=== PATIENT | male | born 1955 | race Caucasian/White ===

== ENCOUNTER 2020-04-04 07:39 | Day surgery (SDC) | payer BC ==
[~2020-04-04] VITALS: Ht 185.4 cm; Wt 89.1 kg
[~2020-04-04 07:39] MED LIST: LOTREL 5-20 MG1 CAP PO
[2020-04-04 08:18] LABS: HEMATOCRIT 43.1 % (42.0-54.0); HEMOGLOBIN 14.7 g/dL (13.5-17.5); MCH 29.1 pg (26.0-34.0); MCHC 34.1 g/dL (31.0-37.0); MCV 85.2 fL (80.0-100.0); MEAN PLATELET VOLUME 9.8 fL (7.4-10.4); RBC 5.06 10x6/uL (4.20-6.10); RDW 14.6 % (11.5-14.5); WBC 8.4 10x3/uL (4.8-10.8)
[2020-04-04 09:14] VITALS: BP 128/86; Ht 185.4 cm; Wt 89.1 kg
--- NOTE | 2020-04-04 18:14 | NUR ---
1810 DR. BONNIE AYON ON PT.
--- NOTE | 2020-05-23 16:10 | OP ---
PATIENT NAME: JUAN PRIETO MEDICAL RECORD: [id number] :55 LOCATION:D.OPS ADMISSION DATE: SURGEON: YARY NICOLE MD DATE OF OPERATION: 04/04/2020 PREOPERATIVE DIAGNOSES: 1. HPV with anal papilloma. 2. Bleeding internal hemorrhoids. POSTOPERATIVE DIAGNOSES: 1. HPV with anal papilloma. 2. Bleeding internal hemorrhoids. PROCEDURES: 1. Anal evaluation under anesthesia with argon plasma coagulation ablation of small verrucous lesions within the anus. 2. Excisional biopsies of some of the verrucous lesions. 3. Ligation of internal hemorrhoids times 3 for purposes of controlling bleeding. DESCRIPTION OF PROCEDURE: The patient was conveyed to the operating room electively on 04/04/2020. General anesthesia was induced by the anesthesia staff. The patient was placed in the lithotomy position with the buttocks taped laterally. The anus and perineum were sterilely prepped and draped. U-shaped anal retractors were placed. I examined the anus. I noted no evidence of an anal fistula. No evidence of an anal fissure. No evidence of perirectal abscess. There were some verrucous lesions that I wanted to excise. I grasped them and excised them with electrocautery. The biopsy sites were made hemostatic with the electrocautery. There were small verrucous lesions that I felt may benefit from argon plasma coagulation ablation. Utilizing the colon setting in the forced mode, I ablated these under HEPA filter vacuum. There were 3 enlarged hemorrhoids, which appeared to be inflamed. These underwent suture ligation with 3-0 Vicryl [id number] sutures. Gelfoam was applied within the anus and lower rectum. A combination of sterile preparation and Marcaine were used to infiltrate the perianal tissues. A topical anesthetic was applied to the external hemorrhoids. The patient was then extubated and conveyed to post-anesthesia care unit where he was in stable condition. I will see him in office in 2-3 weeks. We will recommend anal brushings for cytology in 2 years. TRANSINT:[id number] Voice Confirmation ID: [id number] DOCUMENT ID: [id number] YARY NICOLE MD at 1610 CC: [id number] DICTATION DATE: 05/22/20 1600 [employer]ER[employer] DEVELOPMENT MANAGER: 05/22/20 [id number] DEP SDC 04/04/20 [facility] [address] [facility], [facility]
== END 2020-04-04 19:10 | disposition home or self-care (01) ==
LOC: D.OPS 07:39
PROVIDERS: Anesthesiology; ATTEND Surgery
DX: D12.9 Benign neoplasm of anus and anal canal (principal); K64.8 Other hemorrhoids; I10 Essential (primary) hypertension; K59.00 Constipation, unspecified